=== PATIENT | female | born 1995 | race Caucasian/White ===

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

== ENCOUNTER 2017-03-08 13:40 | Emergency (ER) | payer BC ==
[~2017-03-08] VITALS: Ht 165.1 cm; Wt 60.1 kg
[2017-03-08 13:42] VITALS: BP 117/68; PULSE 108; TEMP 37.8; O2SAT 100; Ht 165.1 cm; Wt 60.1 kg
[2017-03-08] MEDS ORDERED: PENICILLIN V POTASSIUM 250 MG TAB PO ONE (14:00)
[2017-03-08] MEDS ORDERED: PENI-82 PO (14:03)
--- NOTE | 2017-03-08 14:13 | EMERGENCY ROOM VISIT NOTE ---
History Report prepared by Dannieibkathryn: Kalia Chang Under the Supervision of: Dr. Damon Tuttle D.O. First contact with patient: 13:45 Chief Complaint: SORETHROAT Stated Complaint: SORE THROAT,HEADACHE History of Present Illness The patient is a 21 year old female who presents to the Emergency Room with complaints of a worsening sorethroat that began two days ago. She rates her discomfort as a 10/10 in severity. The patient states that she is experiencing bilateral ear aches. She reports that she has been intermittently experiencing headaches as well, but denies a current headache. No stiff neck or neck pain. The patient reports that she took Ibuprofen for her symptoms, but she denies any relief of symptoms. She states that she has been around her family who has been sick recently. She states that her last menstrual period was last week. The patient denies change in vision, cough, fevers, chest pain, shortness of breath, nausea, vomiting, diarrhea, back pain, pain with urination, and melena. Source of History: patient Onset: two days ago Position: throat Symptom Intensity: 10/10 Quality: other (sore) Timing: worsening Modifying Factors (Relieving): ibuprofen Associated Symptoms: + headache, No fevers, No cough, No chest pain, No SOB , No nausea, No vomiting, No back pain, No melena, No diarrhea, No urinary symptoms Review of Systems See HPI for pertinent positives & negatives. A total of 10 systems reviewed and were otherwise negative. Past Medical & Surgical Medical Problems: (1) No known problems Family History Cancer Hypertension Social History Smoking Status: Never Smoker Smokeless Tobacco Use: No Alcohol Use: none Drug Use: none Marital Status: single Housing Status: lives with family Occupation Status: student Current/Historical Medications Scheduled Penicillin V Potassium (Veetids), 500 MG PO QID Allergies Coded Allergies: No Known Allergies (Unverified , 03/08/17) Physical Exam Vital Signs Date Time Temp Pulse Resp B/P (MAP) Pulse Ox O2 Delivery O2 Flow Rate FiO2 03/08/17 13:42 37.8 108 18 117/68 100 Room Air Physical Exam GENERAL: Sitting up in bed, talking in a quiet voice, nontoxic, in no acute distress. EYE EXAM: normal conjunctiva. OROPHARYNX: slightly dry mucous membranes, enlarged tonsils bilaterally, multiple exudates, no submandibular swelling, no peritonsillar swelling, able to swallow and handle secretions. EARS: TMs clear with a faint amount of fluid behind left TM NECK: supple, no nuchal rigidity, anterior cervical adenopathy bilateral, non- tender, negative Brudzinski LUNGS: Clear to auscultation. Normal chest wall mechanics HEART: tachycardic, no murmurs, S1 normal and S2 normal ABDOMEN: abdomen soft, non-tender, normo-active bowel sounds, no masses, no rebound or guarding. BACK: Back is symmetrical on inspection and there is no deformity, no midline tenderness, no CVA tenderness. SKIN: no rashes and no bruising UPPER EXTREMITIES: upper extremities are grossly normal. LOWER EXTREMITIES: No pitting edema. NEURO EXAM: Normal sensorium, cranial nerves II-XII grossly intact, normal speech, no gross weakness of arms, no gross weakness of legs. Gross sensation intact. Medical Decision & Procedures Medications Administered Medications (Trade) Dose Ordered Sig/Max Route Start Time Stop Time Status Last Admin Dose Admin Penicillin V Potassium (Veetids Tab) 500 mg NOW ONCE PO 03/08/17 14:00 03/08/17 14:01 DC 03/08/17 14:10 500 MG Prednisone (PredniSONE TAB) 60 mg NOW STAT PO 03/08/17 13:58 03/08/17 14:01 DC 03/08/17 14:10 60 MG ED Course ED COURSE: Vital signs were reviewed and showed tachycardia. The patients medical record was reviewed The above diagnostic studies were performed and reviewed. ED treatments and interventions as stated above. 1353: The patient was evaluated in room B03B. A complete history and physical examination was performed. 1356: The patient denied any Tylenol or Motrin. 1358: Ordered Prednisone 60 mg PO. 1400: Ordered Veetids Tab 500 mg PO. 1405: Upon reevaluation, the patient is resting comfortably. I discussed the findings and the treatment plan with the patient. The patient verbalizes agreement and understanding. She was discharged home. Medical Decision Differential diagnosis: Etiologies such as viral syndrome, otitis, pharyngitis, pneumonia, influenza, meningitis, urinary tract infection, sepsis, bacteremia, as well as others were entertained. Patient is a 21-year-old female who presents to ER for a sore throat which has been present and worsening for the past 2 days. She is able swallow was very painful. They deny fevers. Upon presentation she slightly tachycardic and almost has a fever. She does have anterior cervical lymphadenopathy. Bilateral tonsils are enlarged and have bilateral exudates. Initial rapid strep is negative. Based on her symptoms and presentation she was treated with penicillin. I did give her steroids to assist with swallowing. She did complain of intermittent headaches but currently does not have any. No nuchal rigidity. No signs of meningitis or encephalitis. Patient was discharged with antibiotics for likely strep pharyngitis. Discussed with Pt concerning signs and symptoms to watch out for. Pt was instructed to follow up with their PCP and discussed with the patient their option to return to the ED at anytime for persistent or worsening symptoms. The appropriate anticipatory guidance and out- patient management, including indications for return to the emergency department , were explained at length to the patient and understood. Medication Reconcilliation Current Medication List: was personally reviewed by me Blood Pressure Screening Patient's blood pressure: Normal blood pressure Impression Primary Impression: Pharyngitis Scribe Attestation The scribe's documentation has been prepared under my direction and personally reviewed by me in its entirety. I confirm that the note above accurately reflects all work, treatment, procedures, and medical decision making performed by me. Departure Information Dispostion Home / Self-Care Prescriptions Penicillin V Potassium (Veetids) 500 Mg Tab 500 MG PO QID, #40 TAB Prov: Damon Tuttle, 03/08/17 Referrals Rere Germain M.D. (PCP) Forms HOME CARE DOCUMENTATION FORM, IMPORTANT VISIT INFORMATION Patient Instructions ED Strep Pharyngitis Isma My [facility] Additional Instructions Please follow up with your primary care doctor with in the next 24 hours. Any worsening of your symptoms, please return to the ED immediately. This includes any fevers greater than 100.4, worsening pain, headache, neck stiffness, chest pain, shortness breath, persistent nausea, vomiting, unable to eat or drink, or any other concerning signs or symptoms from your standpoint. Please take antibiotic as prescribed. His take Tylenol or Motrin as needed for pain and fevers. Problem Qualifiers Primary Impression: Pharyngitis Pharyngitis/tonsillitis etiology: unspecified etiology Qualified Codes: J02.9 - Acute pharyngitis, unspecified
== END 2017-03-08 14:15 | disposition home or self-care (01) ==
LOC: C.EDB 13:41
DX: J02.9 Acute pharyngitis, unspecified (principal); Z82.49 Family history of ischemic heart disease and other diseases of the circulatory system

== ENCOUNTER → 2017-03-12 | Outpatient (CLI) | payer BC ==
[~2017-03-12] MED LIST: PENI-82 PO
[2017-03-12 16:58] LABS: BASO % 0.6 %; BASO ABS # 0.04 K/uL (0-0.2); EOS % 0.2 %; EOS ABS # 0.01 K/uL (0-0.5); HEMATOCRIT 33.9 % (37-47); HEMOGLOBIN 11.4 g/dL (12.0-16.0); IG# 0.03 K/uL (0.00-0.02); LYMPH % 49.5 %; LYMPH ABS # 3.16 K/uL (1.2-3.4); MEAN CELL VOLUME 80.7 fL (80-100); MEAN CORPUSCULAR HEMOGLOBIN 27.1 pg (25-34); MEAN CORPUSCULAR HGB CONC 33.6 g/dl (32-36); MEAN PLATELET VOLUME 9.2 fL (7.4-10.4); MONO % 8.8 %; MONO ABS # 0.56 K/uL (0.11-0.59); NEUT % 40.4 %; NEUT ABS # 2.59 K/uL (1.4-6.5); PLATELET COUNT 169 K/uL (130-400); RED CELL DISTRIBUTION WIDTH CV 13.7 % (11.5-14.5); RED CELL DISTRIBUTION WIDTH SD 40.6 fL (36.4-46.3); WHITE BLOOD COUNT 6.39 K/uL (4.8-10.8)
== END | disposition home or self-care (01) ==
LOC: C.LABBFT 15:03
PROVIDERS: ATTEND Internal Medicine
DX: J02.9 Acute pharyngitis, unspecified (principal); R59.1 Generalized enlarged lymph nodes